=== PATIENT | male | born 1985 | race Caucasian/White ===

== ENCOUNTER 2017-01-27 14:55 | Emergency (ER) | payer BC ==
[~2017-01-27] VITALS: Ht 177.8 cm; Wt 116.8 kg
[~2017-01-27 14:55] MED LIST: NO HOME MEDICATIONS; PENICILLIN250 MG PO; PERCOCET 5/321 UDTAB PO
[2017-01-27 14:59] VITALS: TEMP 98.3
[2017-01-27] MEDS ORDERED: BACTRIM DS 8001 TAB PO (15:20)
[2017-01-27] MEDS ORDERED: AMOXICILLIN 8751 TAB PO (15:20)
[2017-01-27] MEDS ORDERED: NORCO 325 MG-51 TAB PO (16:19)
[2017-01-27] MEDS ORDERED: DOXYCYCLINE 10100 MG PO (16:19)
[2017-01-27 17:18] VITALS: BP 131/79; PULSE 72
== END 2017-01-27 17:20 | disposition home or self-care (01) ==
LOC: COL.ER 14:55
DX: L02.416 Cutaneous abscess of left lower limb (principal); B95.62 Methicillin resistant Staphylococcus aureus infection as the cause of diseases classified elsewhere; Z23 Encounter for immunization

== ENCOUNTER 2017-05-23 19:08 | Emergency (ER) | payer BC ==
[~2017-05-23] VITALS: Ht 177.8 cm; Wt 113.6 kg
[~2017-05-23 19:08] MED LIST changes: +AMOXICILLIN 8751 TAB PO; +BACTRIM DS 8001 TAB PO; +DOXYCYCLINE 10100 MG PO; +NORCO 325 MG-51 TAB PO
[2017-05-23 19:12] VITALS: BP 131/86; TEMP 98.6
[2017-05-23] MEDS ORDERED: CEPHALEXIN500 M1 PO (20:20)
[2017-05-23] MEDS ORDERED: BACTRIM DS 8001 TAB PO (20:20)
[2017-05-23] MEDS ORDERED: NORCO 325 MG-51 TAB PO (20:20)
[2017-05-23 20:38] VITALS: PULSE 70
== END 2017-05-23 20:38 | disposition home or self-care (01) ==
LOC: COL.ER 19:08
DX: L02.414 Cutaneous abscess of left upper limb (principal); L03.114 Cellulitis of left upper limb; Z86.14 Personal history of Methicillin resistant Staphylococcus aureus infection

== ENCOUNTER → 2017-05-29 | Outpatient (CLI) | payer BC ==
[~2017-05-29] MED LIST changes: +CEPHALEXIN500 M1 PO
== END ==
LOC: ZCOL.LAB 16:53
DX: L02.512 Cutaneous abscess of left hand (principal)

== ENCOUNTER 2023-06-15 22:43 | Emergency (ER) | payer BC ==
[~2023-06-15] VITALS: Ht 180.3 cm; Wt 125.0 kg
[~2023-06-15 22:43] MED LIST changes: +PREDNISONE10 MG PO
[2023-06-15 23:27] VITALS: TEMP 97.6
[2023-06-16] MEDS ORDERED: MEDROL 4MG DOSPA4 MG PO (03:43)
[2023-06-16] MEDS ORDERED: NEURONTIN100 MG/CAP PO (03:43)
[2023-06-16 03:56] VITALS: BP 129/86; PULSE 85
== END 2023-06-16 03:56 | disposition home or self-care (01) ==
LOC: COL.ER 22:43
DX: M54.50 Low back pain, unspecified (principal); G89.29 Other chronic pain; F17.290 Nicotine dependence, other tobacco product, uncomplicated
CPT/HCPCS: J2270; J2360; J7512

== ENCOUNTER → 2024-04-20 | Outpatient (CLI) | payer BC ==
[~2024-04-20] MED LIST changes: +MEDROL 4MG DOSPA4 MG PO; +NEURONTIN100 MG/CAP PO
== END ==
LOC: COL.RAD 15:45
DX: M47.816 Spondylosis without myelopathy or radiculopathy, lumbar region (principal); M47.817 Spondylosis without myelopathy or radiculopathy, lumbosacral region